=== PATIENT | male | born 2000 | race Caucasian/White ===

== ENCOUNTER 2021-05-02 13:09 | Emergency (ER) | payer BC ==
[2021-05-02 15:44] LABS: ACETAMINOPHEN 0 ug/mL (10-30)
== END 2021-05-02 19:10 ==
LOC: JD.ED 13:09
DX: F32.A Depression, unspecified (principal); R45.851 Suicidal ideations; Z88.8 Allergy status to other drugs, medicaments and biological substances; Z20.822 Contact with and (suspected) exposure to COVID-19
CPT/HCPCS: 36415; 80053; 80143; 80179; 80306; 80307; 84443; 85025; 99285; U0002